=== PATIENT | male | born 1940 | race Caucasian/White ===

== ENCOUNTER → 2017-07-04 | Outpatient (CLI) | payer MEDICARE, OTHER ==
[~2017-07-04] MED LIST: METO50CR PO; PRED20 PO; PROS5TAB2 PO; ZOCO40TA PO
[2017-07-04 13:05] LABS: AUTOMATED NEUTROPHIL # 4.2 TH/MM3 (1.8-7.7); BASOPHIL # 0.1 TH/MM3 (0-0.2); BASOPHIL % 0.8 % (0.0-2.0); EOSINOPHIL # 0.2 TH/MM3 (0-0.4); EOSINOPHIL % 2.5 % (0.0-4.0); HEMATOCRIT 43.6 % (39.0-51.0); HEMOGLOBIN 14.6 GM/DL (13.0-17.0); LYMPH % 27.1 % (9.0-44.0); LYMPHOCYTE # 1.9 TH/MM3 (1.0-4.8); MEAN CELL VOLUME 96.9 FL (80.0-100.0); MEAN CORPUSCULAR HEMOGLOBIN 32.6 PG (27.0-34.0); MEAN CORPUSCULAR HGB CONC 33.6 % (32.0-36.0); MEAN PLATELET VOLUME 6.9 FL (7.0-11.0); MONO % 9.1 % (0.0-8.0); MONOCYTE # 0.6 TH/MM3 (0-0.9); NEUT % 60.5 % (16.0-70.0); PLATELET COUNT 296 TH/MM3 (150-450); RED BLOOD COUNT 4.49 MIL/MM3 (4.50-5.90); RED CELL DISTRIBUTION WIDTH 13.6 % (11.6-17.2)
[2017-07-04 13:32] LABS: BICARBONATE 30.4 MEQ/L (21.0-32.0); CALCIUM 9.1 MG/DL (8.5-10.1); CREATININE 1.21 MG/DL (0.60-1.30)
--- NOTE | 2017-07-04 21:14 | EKG ---
Date Performed: 07/04/2017 Time Performed: 13:05:23 PTAGE: 77 years EKG: SINUS BRADYCARDIA BORDERLINE ECG PREVIOUS TRACING : 09/19/2004 10.14 DOCTOR: Tiffani Rogers Interpretating Date/Time 07/04/2017 21:12:46
== END ==
LOC: CLAB 12:25
PROVIDERS: ATTEND Orthopaedic Surgery Orthopaedic Surgery of the Spine
DX: Z01.810 Encounter for preprocedural cardiovascular examination (principal); Z01.812 Encounter for preprocedural laboratory examination
CPT/HCPCS: 36415; 80048; 85025; 93005

== ENCOUNTER 2017-07-17 20:41 | Emergency (ER) | payer MEDICARE, OTHER ==
[2017-07-17 20:43] VITALS: BP 169/74; PULSE 67; RESP 16; TEMP 98.3; O2SAT 98
[2017-07-17] MEDS ORDERED: PROS5TAB PO (21:39)
[2017-07-17] MEDS ORDERED: ZOCO40TA PO (21:40)
[2017-07-17] MEDS ORDERED: METO50TA PO (21:40)
[2017-07-17] MEDS ORDERED: SULF500T3 PO (21:41)
[2017-07-17 21:42] VITALS: BP 132/69; PULSE 59; RESP 18; O2SAT 97
[2017-07-17 22:01] LABS: AUTOMATED NEUTROPHIL # 4.6 TH/MM3 (1.8-7.7); BASOPHIL % 0.3 % (0.0-2.0); EOSINOPHIL # 0.2 TH/MM3 (0-0.4); EOSINOPHIL % 2.1 % (0.0-4.0); HEMATOCRIT 41.7 % (39.0-51.0); HEMO FLAGS DIFF FINAL; LYMPH % 33.7 % (9.0-44.0); LYMPHOCYTE # 2.9 TH/MM3 (1.0-4.8); MEAN CELL VOLUME 97.5 FL (80.0-100.0); MEAN CORPUSCULAR HGB CONC 32.8 % (32.0-36.0); MONO % 9.2 % (0.0-8.0); NEUT % 54.7 % (16.0-70.0); PLATELET COUNT 263 TH/MM3 (150-450); RED BLOOD COUNT 4.27 MIL/MM3 (4.50-5.90); RED CELL DISTRIBUTION WIDTH 13.6 % (11.6-17.2); WHITE BLOOD COUNT 8.5 TH/MM3 (4.0-11.0)
--- NOTE | 2017-07-17 22:04 | PD ---
HPI Chief Complaint: Edema Time Seen by Provider: 21:43 Travel History International Travel<30 days: No Contact w/Intl Traveler<30days: No Traveled to known affect area: No History of Present Illness HPI The patient is a 77 year old female who presents to the [facility] emergency department with a history of swelling in the left axilla that he reports he first noticed on Monday morning. He reports that it was associated with an aching sensation in the left axilla. He reports that he is also noticed some tingling in his left wrist and left hand. 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 He denies having any open wounds on his left arm. He denies having any new pets or kittens. He denies having any fevers or chills. He reports that the pain comes and goes. He reports that it is usually worse in the morning. Otherwise on review of systems, he denies having any cough, congestion, neck pain, chest pain, shortness of breath, abdominal pain, vomiting , diarrhea, urinary symptoms, or other neurologic symptoms. The patient's primary care physician is Dr. Smith and judi Manuel. [facility] Past Medical History Narrative Medical The patient's past medical history is significant for umbilical hernia repair, ankylosing spondylitis benign prosthetic hypertrophy, hypertension, hyperlipidemia Cardiovascular Problems: Yes (HTN) High Cholesterol: Yes Hypertension: Yes Tetanus Vaccination: Unknown Influenza Vaccination: Yes Past Surgical History Narrative Surgical The patient's past surgical history is significant for a right inguinal hernia repair, umbilical hernia repair, left knee surgery. Abdominal Surgery: Yes (hernia repair right side ) Other Surgery: Yes Social History Alcohol Use: Yes (occasional ) Tobacco Use: No Substance Use: No Allergies-Medications (Allergen,Severity, Reaction): Coded Allergies: No Known Allergies (Verified Adverse Reaction, Unknown, 07/17/17) Reported Meds & Prescriptions Reported Meds & Active Scripts Active Reported Sulfasalazine 500 Mg Tab 500 Mg PO BID Zocor (Simvastatin) 40 Mg Tab 40 Mg PO DAILY Metoprolol Tartrate 50 Mg Tab 50 Mg PO BID Proscar (Finasteride) 5 Mg Tab 5 Mg PO DAILY Do not crush. Review of Systems Except as stated in HPI: all other systems reviewed are Neg General / Constitutional: No: Fever Eyes: No: Visual changes HENT: No: Headaches Cardiovascular: No: Chest Pain or Discomfort Respiratory: No: Shortness of Breath Gastrointestinal: No: Abdominal Pain Genitourinary: No: Dysuria Musculoskeletal: Positive: Pain, Other (left axillary swelling) Skin: No Rash Neurologic: No: Weakness, Focal Abnormalities, Change in Mentation, Slurred Speech, Sensory Disturbance Psychiatric: No: Depression Endocrine: No: Polydipsia Hematologic/Lymphatic: No: Easy Bruising Physical Exam Narrative General: The patient is a well-developed well-nourished male in no acute distress. Head and Neck exam: Head is normocephalic atraumatic. Eyes: EOMI, pupils are equal round and reactive to light. Nose: Midline septum with pink mucous membranes Mouth: Dentition unremarkable. Moist mucus membranes. Posterior oropharynx is not erythematous. No tonsillar hypertrophy. Uvula midline. Airway patent. Neck: No palpable lymphadenopathy. No nuchal rigidity. No thyromegaly. No supraclavicular lymphadenopathy. Cardiovascular: Regular rate and rhythm without murmurs, gallops, or rubs. On examination of the patient's axilla, the patient's bilateral axilla were examined. The patient has no lymphadenopathy palpated. No pain on palpation at this time. No erythema, edema, crepitus, or rashes noted. His axilla appear to be symmetric. He does have some fatty tissue in bilateral axilla noted. Lungs: Clear to auscultation bilaterally. No wheezes, rhonchi, or rales. Abdomen: Soft, without tenderness to palpation in all 4 quadrants of the abdomen. No guarding, rebound, or rigidity. Negative [place] sign. Extremities: No clubbing, cyanosis, or edema. 2+ pulses in all 4 extremities. No tenderness overlying the bicipital groove or before meals joint. The patient has no pain with range of motion of his left shoulder including cross body abduction of the left arm. The patient has full range of motion of the left elbow, left wrist, hand with full strength. The patient has intact sensation over all fingertips. Less than 3 second capillary refill. Back: No spinous process tenderness to palpation. No costovertebral angle tenderness to palpation. Neurologic Exam: Grossly nonfocal. Skin Exam: No rash noted. Intact skin that is warm and dry. Data Data Last Documented VS Vital Signs Date Time Temp Pulse Resp B/P (MAP) Pulse Ox O2 Delivery O2 Flow Rate FiO2 07/17/17 21:42 59 18 132/69 (90) 97 Room Air 07/17/17 20:43 98.3 Orders Orders Complete Blood Count With Diff (07/17/17 21:10) Basic Metabolic Panel (Bmp) (07/17/17 21:10) Coag Profile (07/17/17 21:10) Us Soft Tissue (07/17/17 ) Shoulder, Complete (>2vws) (07/17/17 21:56) Labs Laboratory Tests Test 07/17/17 21:25 White Blood Count 8.5 TH/MM3 Red Blood Count 4.27 MIL/MM3 Hemoglobin 13.7 GM/DL Hematocrit 41.7 % Mean Corpuscular Volume 97.5 FL Mean Corpuscular Hemoglobin 32.0 PG Mean Corpuscular Hemoglobin Concent 32.8 % Red Cell Distribution Width 13.6 % Platelet Count 263 TH/MM3 Mean Platelet Volume 6.6 FL Neutrophils (%) (Auto) 54.7 % Lymphocytes (%) (Auto) 33.7 % Monocytes (%) (Auto) 9.2 % Eosinophils (%) (Auto) 2.1 % Basophils (%) (Auto) 0.3 % Neutrophils # (Auto) 4.6 TH/MM3 Lymphocytes # (Auto) 2.9 TH/MM3 Monocytes # (Auto) 0.8 TH/MM3 Eosinophils # (Auto) 0.2 TH/MM3 Basophils # (Auto) 0.0 TH/MM3 CBC Comment DIFF FINAL Differential Comment Prothrombin Time 10.4 SEC Prothromb Time International Ratio 0.9 RATIO Activated Partial Thromboplast Time 24.5 SEC Blood Urea Nitrogen 28 MG/DL Creatinine 0.97 MG/DL Random Glucose 89 MG/DL Calcium Level 8.7 MG/DL Sodium Level 139 MEQ/L Potassium Level 4.0 MEQ/L Chloride Level 104 MEQ/L Carbon Dioxide Level 29.3 MEQ/L Anion Gap 6 MEQ/L Estimat Glomerular Filtration Rate 75 ML/MIN MDM Medical Decision Making Medical Screen Exam Complete: Yes Emergency Medical Condition: Yes Medical Record Reviewed: Yes Differential Diagnosis Lymphadenitis, versus lymphadenopathy, versus musculoskeletal strain, versus rotator cuff injury, versus arthritis, versus cervical radiculopathy, versus lipoma Narrative Course During the course of the patients emergency department visit, the patients history, examination, and differential diagnosis were reviewed with the patient. The patient was placed on a clinical research monitor with oximetry and frequent blood pressure monitoring. The patient had IV access obtained and blood work sent for analysis. An ultrasound of the soft tissues of the left axilla was ordered. The patients laboratory studies were reviewed and remarkable for a white count of 8.5, hemoglobin 13.7, platelets 263 with monocytes 9.2. Basic metabolic profile is remarkable for BUN of 28, GFR 75, PT 10.4, PTT 24.5 Radiology studies were reviewed and remarkable for an ultrasound of the patient' s left axilla that reveals a probable lymph node in the left axilla that that is 2 x 1.9 x 0.9 cm. As the patient has no other associated symptoms I recommended at this point watchful waiting as the lymph node is small and there is no associated overlying erythema or tenderness on palpation of this time. I recommended follow-up with his primary care physician for reexamination in one week. The patient is given a for his primary care physician. An x-ray of the left shoulder reveals degenerative changes with mild spurring of the before meals joint and anterior medial humeral head, small area of calcification adjacent to the greater tubercle which could represent calcific tendinitis. The patient was also given a copy of this x-ray. The patient's morning pain in the left axilla could be partially related to arthritis in the left shoulder. The patient is resting comfortably and feels better, is alert and in no distress. The patients results and examination findings were discussed with the patient. The repeat examination is unremarkable and benign. The history, exam, diagnostic testing, and current condition do not suggest any significant pathology to warrant further testing, continued ED treatment, admission, or surgical evaluation at this point. The vital signs have been stable. The patient does not have uncontrollable pain, intractable vomiting, or other significant symptoms. The patient's condition is stable and appropriate for discharge. The patient will pursue further outpatient evaluation with a primary care physician or other designated or consulting physician as indicated in the discharge instructions. The patient expressed understanding and was agreeable with this plan. Diagnosis Primary Impression: Left axillary pain Additional Impression: Enlarged lymph node Referrals: Primary Care Physician Patient Instructions: General Instructions, Lymphadenopathy (ED) Med/Other Pt SpecificInfo: No Change to Meds Disposition: 01 DISCHARGE HOME Condition: Stable Ana Paula Guillermo MD Jul 17, 2017 22:04
[2017-07-17 22:13] LABS: BICARBONATE 29.3 MEQ/L (21.0-32.0)
[2017-07-17 22:26] LABS: APTT (PATIENT) 24.5 SEC (24.3-30.1); INTERNATIONAL NORMALIZED RATIO 0.9 RATIO; PROTHROMBIN TIME - PATIENT 10.4 SEC (9.8-11.6)
--- NOTE | 2017-07-17 23:02 | RADRPT ---
EXAM DATE/TIME: 07/17/2017 22:36 [facility] COMPARISON: No previous studies available for comparison. INDICATIONS : Palpable mass. MEDICAL HISTORY : Hypertension. Hypercholesterolemia. SURGICAL HISTORY : Hernia repair right side. Right knee surgery. ENCOUNTER: Initial ACUITY: 1 week PAIN SCORE: 3/10 LOCATION: Left Axilla. AREA EVALUATED: Left axilla. FINDINGS: MASSES: Isoechoic 2.0 x 1.9 x 0.9 cm soft tissue mass possible lymph node. FLUID COLLECTIONS: None. OTHER: Negative. CONCLUSION: 1. Probable lymph node in the left axilla. Jasson Graves MD on July 17, 2017 at 22:59 Board Certified Radiologist. This report was verified electronically.
--- NOTE | 2017-07-17 23:09 | RADRPT ---
EXAM DATE/TIME: 07/17/2017 22:03 [facility] COMPARISON: No previous studies available for comparison. INDICATIONS : Pain and possible swelling inferior aspect of left shoulder, denies injury MEDICAL HISTORY : None. SURGICAL HISTORY : None. ENCOUNTER: Initial ACUITY: 2 weeks PAIN SCORE: 3/10 LOCATION: Left Shoulder FINDINGS: No acute fracture is seen. The glenohumeral and acromioclavicular joints are aligned. There is some h ypertrophic change at acromioclavicular joint and at the inferior medial humeral head. There some natanael cification adjacent to the greater tubercle. CONCLUSION: 1. Degenerative change with mild spurring at the acromioclavicular joint and inferior medial humeral head. 2. Small area of calcification adjacent to the greater tubercle which could represent calcific tendin itis. Lucio Sagastume MD on July 17, 2017 at 23:07 Board Certified Radiologist. This report was verified electronically.
== END 2017-07-17 23:28 | disposition home or self-care (01) ==
LOC: NEPC 20:41
DX: M79.622 Pain in left upper arm (principal); R59.9 Enlarged lymph nodes, unspecified; M45.9 Ankylosing spondylitis of unspecified sites in spine; I10 Essential (primary) hypertension; E78.5 Hyperlipidemia, unspecified
CPT/HCPCS: 73030; 76999; 80048; 85025; 85610; 85730

== ENCOUNTER → 2017-12-04 | Outpatient (CLI) | payer MEDICARE, OTHER ==
[~2017-12-04] MED LIST changes: +ASPI81TA23 PO; +ATOR40TA16 PO; +DICL75TA PO; +FOLI800T PO; +METH2.5T PO; -METO50CR PO; +METO50TA PO; -PRED20 PO; +PROS5TAB PO; -PROS5TAB2 PO; +SULF500T3 PO; +TAMS0.4C4 PO
[2017-12-04 08:41] LABS: AUTOMATED NEUTROPHIL # 3.8 TH/MM3 (1.8-7.7); BASOPHIL % 0.6 % (0.0-2.0); EOSINOPHIL # 0.2 TH/MM3 (0-0.4); EOSINOPHIL % 3.7 % (0.0-4.0); HEMATOCRIT 40.5 % (39.0-51.0); HEMOGLOBIN 13.7 GM/DL (13.0-17.0); LYMPH % 27.6 % (9.0-44.0); LYMPHOCYTE # 1.8 TH/MM3 (1.0-4.8); MEAN CELL VOLUME 98.5 FL (80.0-100.0); MEAN CORPUSCULAR HEMOGLOBIN 33.4 PG (27.0-34.0); MEAN CORPUSCULAR HGB CONC 33.8 % (32.0-36.0); MEAN PLATELET VOLUME 6.9 FL (7.0-11.0); MONO % 10.1 % (0.0-8.0); MONOCYTE # 0.7 TH/MM3 (0-0.9); PLATELET COUNT 299 TH/MM3 (150-450); RED BLOOD COUNT 4.11 MIL/MM3 (4.50-5.90); RED CELL DISTRIBUTION WIDTH 14.1 % (11.6-17.2); WHITE BLOOD COUNT 6.5 TH/MM3 (4.0-11.0)
[2017-12-04 08:58] LABS: PROTHROMBIN TIME - PATIENT 10.4 SEC (9.8-11.6)
[2017-12-04 09:12] LABS: CALCIUM 8.8 MG/DL (8.5-10.1); CREATININE 0.99 MG/DL (0.60-1.30)
[2017-12-04 10:17] LABS: BILIRUBIN, URINE NEG (NEG); BLOOD, URINE NEG (NEG); GLUCOSE,URINE NEG (NEG); HYALINE CAST, URINE 31 /lpf (RARE); KETONE, URINE NEG (NEG); MUCUS URINE MANY /lpf (OCC); NITRITE,URINE NEG (NEG); PH, URINE 5.5 (5.0-8.5); SQUAMOUS EPITHELIAL CELL URINE 1 /hpf (0-5); URINE COLOR YELLOW (YELLW/STRAW); URINE LEUKOCYTE ESTERASE NEG (NEG)
== END ==
LOC: CPRE 07:53
PROVIDERS: ATTEND Orthopaedic Surgery Orthopaedic Surgery of the Spine
DX: Z01.812 Encounter for preprocedural laboratory examination (principal); M79.609 Pain in unspecified limb; M16.11 Unilateral primary osteoarthritis, right hip
CPT/HCPCS: 36415; 80048; 81001; 85025; 85610; 85730

== ENCOUNTER 2017-12-19 05:10 | Inpatient (IN) | payer MEDICARE, OTHER ==
[~2017-12-19] VITALS: Ht 170.2 cm; Wt 102.1 kg
[~2017-12-19 05:10] MED LIST changes: -SULF500T3 PO; -ZOCO40TA PO
[2017-12-19] MEDS ORDERED: METOPROLOL TARTRATE 25 MG TAB PO PRN (05:30)
[2017-12-19] MEDS ORDERED: LACTATED RINGER'S 1000 ML IV PRN (05:30)
[2017-12-19] MEDS ORDERED: CHLORHEXIDINE GLUCONATE 2 % 1 PACK (2 CLOTHS) TOPICAL PRN (05:30)
[2017-12-19] MEDS ORDERED: POVIDONE IODINE 5% (ANTISEPSIS KIT) 4 APPLICATIONS EACH NARE PRN (05:30)
[2017-12-19] MEDS ORDERED: ceFAZolin 2 GM PREMIX 50 ML IV SCH (05:30)
[2017-12-19] MEDS ORDERED: SODIUM CHLORID 0.9% 500 ML IV PRN (05:30)
[2017-12-19] MEDS ORDERED: CHLORHEXIDINE GLUCONATE 4% SOLN 120 ML BTL TOPICAL SCH (05:30)
[2017-12-19] MEDS ORDERED: EXPAREL PERI-ARTICULAR INJECTION (TOTAL VOL. 60 ML) P-ARTICULR SCH ×2 (05:30)
[2017-12-19] MEDS ORDERED: VANCOMYCIN 1 GM/200 ML PREMIX ON-CALL IV SCH (05:30)
[2017-12-19] MEDS ORDERED: TRANEXAMIC ACID INJ 1,020 MG in SODIUM CHLORIDE 0.9% INJ 100 ML IV SCH (05:30)
[2017-12-19] MEDS ORDERED: ACETAMINOPHEN 1000 MG/100 ML 100 ML IV ONE (06:40)
[2017-12-19] MEDS ORDERED: ceFAZolin 2 GM PREMIX 100 ML IV ONE (07:14)
[2017-12-19] MEDS ORDERED: BUPIVACAINE PF 0.75% DEX-WATER INJ 2 ML AMP ONE (07:44)
[2017-12-19] MEDS ORDERED: PROPOFOL 500 MG/50 ML INJ 50 ML ONE (08:33)
[2017-12-19] MEDS ORDERED: ACETAMINOPHEN/HYDROcodone 325 MG/10 MG TAB PO PRN (09:45)
[2017-12-19] MEDS ORDERED: NALOXONE HCL 0.4 MG/ML AMP IV PUSH PRN (09:45)
--- NOTE | 2017-12-19 09:45 | PD.OP ---
cc: Yanick Sanford MD Operative Report Date of Surgery: Dec 19, 2017 Preoperative Diagnosis: Osteoarthritis right hip Postoperative Diagnosis: Same Procedure: Right total hip replacement arthroplasty, direct anterior exposure Anesthesia: Spinal Surgeon: Yanick Sanford Electron Beam Machine Welder Setter(s): ROCCO Chaparro Operation and Findings: EBL: 350 cc INDICATION: This patient presents with significant hip pain related to severe osteoarthritis of the right hip. Despite extensive conservative care this patient continues to be painful and now presents for surgical treatment. NOTE: Patricia Chaparro PA-C was present for the entire surgical procedure as my director of first impressions. In my medical opinion her skill and care was necessary for the proper management of this patient. COMPONENTS: COMPANY: [employer] CUP: [place], 56, 100 series, gription surface LINER: Altrx 36, neutral STEM: [place], size 14, high offset, hydroxyapatite-coated HEAD: 36 mm, metal, +5, 12/14 taper PROCEDURE: This patient was brought to the operating room and anesthetized in the supine position and positioned on the fracture table with both legs held extended. The right hip and leg was scrubbed with alcohol followed by Hibiclens followed by ChloraPrep and draped sterilely. Antibiotics were given within routine time window and a timeout was done. A 4 inch incision was made starting 2 cm distal and 2 cm lateral to the anterior superior iliac spine. The fascia mariya was opened longitudinally. The interval between the fascia mariya and the rectus was opened down to the capsule of the hip joint. Retractors were positioned allowing good visualization of the capsule. This was opened longitudinally and flaps were created. Stay sutures were utilized. Exposure was excellent. The neck was cut at the proper location using fluoroscopy as a guide. The head was removed. Deep retractors were positioned allowing good visualization of the acetabulum. Acetabulum was deepened down to the floor starting with a proper size reamer and reaming up to 55 mm. A trial was utilized. Fluoroscopy was used to check position and confirmed satisfactory alignment. The rim was reamed with a 56 mm reamer and the final cup was positioned in approximately 20 of anteversion and 40-45 of abduction. Position was satisfactory. A single hole eliminator was positioned followed by the final liner. The lifting hook was utilized. The leg was dropped to the floor, maximally externally rotated and brought across the midline. Retractors were positioned. A box osteotome was utilized followed by progressive broaching to the proper stem size. Trial reduction showed excellent alignment and fit. With 60 of external rotation the leg was dropped to the floor without evidence of anterior subluxation. The wound was irrigated. The final stem was inserted and was found to be very stable. The final reduction using the final head. Stability was as previously noted. Intraoperative x-rays were taken. The wound was irrigated copiously. Hemostasis was controlled. Local anesthesia was utilized. The capsule was repaired with #2 Tycron sutures. The fascia mariya was repaired with running 0 PDS on a loop. Subcutaneous tissue was approximated with 2-0 Vicryl and skin with running intradermal 3-0 Vicryl followed by Steri-Strips. A sterile dressing was applied. The patient was awakened and taken to the recovery room in satisfactory condition. FINDINGS: There was severe osteoarthritis of the right hip. There was a severely degenerated and torn labrum complicating this condition. The final solution appeared to be excellent. There was no complication was appreciated Yanick Sanford MD Dec 19, 2017 09:45
[2017-12-19] MEDS ORDERED: ASPI325T33 PO (09:47)
[2017-12-19] MEDS ORDERED: HYDR-3583 PO (09:47)
[2017-12-19] MEDS ORDERED: Post-op Orders (for Pharmacy) XX ONE (09:53)
[2017-12-19] MEDS ORDERED: DO NOT ADM ANY ANTICOAGULANT DRUGS PRN (09:59)
[2017-12-19] MEDS ORDERED: MIDAZOLAM HCL 2 MG/2 ML VIAL ONE (10:08)
[2017-12-19] MEDS: LACTATED RINGER'S 1000 ML INJ 1,000 ML IV SCH (10:44)
[2017-12-19] MEDS ORDERED: ASPIRIN 81 MG CHEW TAB CHEW ONE (11:00)
[2017-12-19] MEDS ORDERED: PHENYLEPH/NS 1000 MCG/10 ML SYR IV ONE (12:00)
[2017-12-19] MEDS ORDERED: ONDANSETRON HCL 4 MG/2 ML VIAL IV ONE (12:00)
[2017-12-19] MEDS ORDERED: PROPOFOL 200 MG/20 ML AMP IV ONE (12:00)
[2017-12-19] MEDS ORDERED: ePHEDrine/NS 25 MG/5 ML SYRINGE IV ONE (12:00)
[2017-12-19] MEDS ORDERED: DEXAMETHASONE SOD PHOS 4 MG/ML VIAL IV ONE (12:00)
[2017-12-19] MEDS ORDERED: *morphine SULFATE 4 MG/ML PERIprocedure ONLY ONE (13:47)
[2017-12-19] MEDS: ACETAMINOPHEN/HYDROcodone 325 MG/10 MG TAB PO PRN ×3 (15:09→23:54)
--- NOTE | 2017-12-19 15:35 | RADRPT ---
EXAM DATE/TIME: 12/19/2017 07:33 [facility] COMPARISON: No previous studies available for comparison. INDICATIONS : Post op total hip arthroplasty. MEDICAL HISTORY : Hypertension. Hypercholesterolemia. SURGICAL HISTORY : Hernia repair right side. Right knee surgery. ENCOUNTER: Initial ACUITY: 1 day PAIN SCORE: Non-responsive. LOCATION: Right hip FINDINGS: View of the right hip was obtained. Postsurgical changes following hip arthroplasty are noted. Acetab ular and femoral components are well seated and satisfactorily aligned. CONCLUSION: Status post right hip arthroplasty. Jasson Graves MD on December 19, 2017 at 15:33 Board Certified Radiologist. This report was verified electronically.
[2017-12-19 16:00] VITALS: BP 135/63; PULSE 73; RESP 19; TEMP 98.2; O2SAT 95
[2017-12-19] MEDS: MORPHINE SULFATE 8 MG/ML INJ IM PRN ×2 (17:17→20:54)
[2017-12-19 20:00] VITALS: BP 114/60; PULSE 87; RESP 18; TEMP 97.9; O2SAT 97
[2017-12-19] MEDS ORDERED: WALKER WHEELS/F1 MIS (20:34)
[2017-12-19] MEDS ORDERED: COMMODE 3-IN-11 MIS (20:35)
--- NOTE | 2017-12-19 20:38 | HHI.FF ---
Face to Face Verification Diagnosis: (1) Osteoarthritis of right hip Physical Therapy Gait training, Safety evaluation, Transfer training, bed to chair Hip: Total hip, Protocol: Right, Progress to weight bearing Right LE Weight Bearing: WB as tolerated Additional Instructions PT 3-4 days/wk for 2 weeks. WBAT RLE. Anterior RED protocol. Gait training. Walker as needed. Nursing RN Days per Week: 2 x Week(s): 1 Nursing: Other Dressing Changes: Do not change dressing Additional Instructions Vitals assessment. Dressing assessment - do not change unless saturated or erythema. I have seen patient Brennen Toney on 12/19/17. My clinical findings support the need for the requested home health care services because: Limited ability to care for self High risk of falls I certify that my clinical findings support that this patient is homebound because: Post-op weakness Unsteady gait/balance Patricia Chaparro Dec 19, 2017 20:38
--- NOTE | 2017-12-19 20:38 | HHI.DCPOC ---
Discharge Care Plan Diagnosis: (1) Osteoarthritis of right hip (2) Cervical paraspinal muscle spasm Your Health Problems Are: Difficulty with ADL Incision/Drains Swelling Goals to Promote Your Health * To prevent worsening of your condition and complications * To maintain your health at the optimal level Directions to Meet Your Goals Take your medications as prescribed Follow your dietary instruction Follow activity as directed Keep your appointments as scheduled Take your immunizations and boosters as scheduled If your symptoms worsen call your PCP, if no PCP go to Urgent Care Center or Emergency Room Smoking is Dangerous to Your Health. Avoid second hand smoke Call the 24-hour hour crisis hotline for domestic abuse at Patricia Chaparro Dec 19, 2017 20:38
--- NOTE | 2017-12-19 20:46 | HHI.DS ---
Discharge Summary Admission Date Dec 19, 2017 at 05:10 Discharge Date: Dec 21, 2017 Admitting Diagnosis see below Diagnosis: (1) Osteoarthritis of right hip Diagnosis: Principal ICD Codes: M16.11 - Unilateral primary osteoarthritis, right hip (2) Cervical paraspinal muscle spasm Diagnosis: Secondary ICD Codes: M62.838 - Other muscle spasm Procedures Right total hip arthroplasty, direct anterior approach Brief History This is a 77 year old male patient with a 2-3 year history of right hip pain. He attempted basic activity changes when the pain began to increase. He did not see improvement so he sought out medical treatment in 2016. Imaging studies were performed revealing moderate to advanced arthritis with subchondral cystic changes. He was already on immunosuppressive medications for ankylosing spondylitis including methotrexate and sulfasalazine. He was eventually placed on diclofenac. He pursued physical therapy for several weeks but his function did not improve. He underwent intra-articular hip injection with cortisone July 2017 and did very well for 4 months. As his pain began to return, surgical treatment was discusse. It was recommended that he consider right total hip arthroplasty, direct anterior approach. He agreed and no presents for the above. Hospital Course Surgical treatment was performed on the day of admission without complication. He struggled with cervical stiffness and spasms both preoperatively and postoperatively due to his ankylosing spondylitis. He recovered well in PACU and was transferred to the orthopaedic floor. Pain was controlled with IV and oral medications. DVT prophylaxis was initiated with ASA 81mg bid. He was given flexeril and prednisone for his cervical condition. He was compliant with physical therapy and all RED precautions. After 2 days he was found to be stable and discharged home with home health care. He was educated to continue his therapy, to ice his operative leg, and to pursue a high fiber diet. He was given prescriptions for ASA 81mg bid and Constantia 10mg. Pt Condition on Discharge: Stable Discharge Disposition: Disch w/ Home Health Serv Discharge Instructions Diet Instructions: High Fiber Diet Activities You Can Perform: Weight Bearing as Maribel Activities to Avoid: Strenuous Activity Additional Activity Instruc.: Anterior RED protocol New Medications: Commode 3-in-1 (Commode 3-in-1) 1 Mis Mis EA .XX DIRECTED, #1 0 Refills Walker with Front Wheels (Walker with Front Wheels) 1 Mis Mis EA .XX DIRECTED, #[address] (Aspirin EC) 325 Mg Tabdr 81 MG PO BID for Prevent Blood Clot, #60 TAB Hydrocodone/Acetaminophen (Hydrocodone-Acetamin 10-325 mg) 10 Mg-325 Mg Tablet 1 TAB PO Q4H PRN for Pain, #42 TAB Continued Medications: Atorvastatin (Atorvastatin) 40 Mg Tab 40 MG PO HS for Cholesterol Management, #30 TAB 0 Refills Finasteride (Proscar) 5 Mg Tab 5 MG PO EVERY OTHER DAY for Manage Prostate Problems, #30 TAB 0 Refills Do not crush. Folic Acid (Folic Acid) 0.8 Mg Tab 1 MG PO DAILY for Nutritional Supplement, TAB 0 Refills Methotrexate (Methotrexate) 2.5 Mg Tab 3 TAB PO every monday, TAB 0 Refills Metoprolol Tartrate (Metoprolol Tartrate) 50 Mg Tab 50 MG PO BID, #60 TAB 0 Refills Tamsulosin (Tamsulosin) 0.4 Mg Cap 0.4 MG PO HS for Manage Prostate Problems, #30 CAP 0 Refills Discontinued Medications: Aspirin DR (Aspirin EC) 81 Mg Tabdr 81 MG PO DAILY, TAB [address] (Diclofenac Sodium DR) 75 Mg Tabdr 75 MG PO BID, #60 TAB 0 Refills Patricia Chaparro Dec 19, 2017 20:46
[2017-12-19] MEDS: SENNOSIDES 8.6 MG TAB PO SCH (20:50)
[2017-12-19] MEDS: TAMSULOSIN HCL 0.4 MG CAP PO SCH (20:50)
[2017-12-19] MEDS: METOPROLOL TARTRATE 50 MG TAB PO SCH (20:50)
[2017-12-19] MEDS: ATORVASTATIN 40 MG TAB PO SCH (20:50)
[2017-12-19] MEDS: ASPIRIN EC 81 MG TABEC PO SCH (20:51)
[2017-12-19] MEDS: MAGNESIUM HYDROXIDE SUSP 30 ML CUP PO SCH (20:51)
[2017-12-20 03:16] VITALS: BP 138/62; PULSE 73; RESP 18; TEMP 98.6; O2SAT 94
[2017-12-20 07:39] VITALS: BP 111/56; PULSE 67; RESP 18; TEMP 97.7; O2SAT 93
[2017-12-20] MEDS: METOPROLOL TARTRATE 50 MG TAB PO SCH ×2 (07:56→20:25)
[2017-12-20] MEDS: ACETAMINOPHEN/HYDROcodone 325 MG/10 MG TAB PO PRN ×4 (07:56→21:42)
[2017-12-20] MEDS: ASPIRIN EC 81 MG TABEC PO SCH ×2 (07:57→20:25)
[2017-12-20] MEDS: MAGNESIUM HYDROXIDE SUSP 30 ML CUP PO SCH ×2 (07:57→20:25)
[2017-12-20 08:47] LABS: HEMATOCRIT 32.4 % (39.0-51.0)
[2017-12-20 12:00] VITALS: BP 117/58; PULSE 61; RESP 18; TEMP 97.6; O2SAT 96
--- NOTE | 2017-12-20 12:59 | PD.ORT.PN ---
Subjective Subjective Remarks Doing 'as he expected'. His current complaint involved his neck spasms. It is better than yesterday but still 'very uncomfortable'. Right hip pain is controlled with PO meds. Appetite is ok. Urinating readily. Concerned about going home today. No new CP or SOB. Objective Vitals Vital Signs Date Time Temp Pulse Resp B/P (MAP) Pulse Ox O2 Delivery O2 Flow Rate FiO2 12/20/17 12:00 97.6 61 18 117/58 (77) 96 12/20/17 08:56 20 12/20/17 07:39 97.7 67 18 111/56 (74) 93 12/20/17 03:16 98.6 73 18 138/62 (87) 94 12/19/17 20:59 18 12/19/17 20:00 97.9 87 18 114/60 (78) 97 12/19/17 16:00 98.2 73 19 135/63 (87) 95 12/19/17 14:00 97.7 66 16 126/64 (84) 92 Nasal Cannula 2 I/O 12/19/17 12/19/17 12/19/17 12/20/17 12/20/17 12/20/17 07:00 15:00 23:00 07:00 15:00 23:00 Intake Total 2920 ml 100 ml 460 ml Output Total 350 ml Balance 2570 ml 100 ml 460 ml Intake Oral 360 ml IV Total 1620 ml 100 ml 100 ml Other 1300 ml Estimated Blood Loss 350 ml # Voids 2 # Bowel Movements 0 Result Diagram: 12/20/17 0801 Procedures Right total hip arthroplasty, direct anterior approach Objective Remarks Walking through room from restroom With his NAD VSS RLE Hip dressing c/d/i, mild swelling, mild warmth, no erythema +motor at, +sens, +nvi Neg homans Assessment & Plan Ortho Post Op Day #: 1 Problem List: (1) Osteoarthritis of right hip ICD Codes: M16.11 - Unilateral primary osteoarthritis, right hip Qualifiers: Qualified Codes: M16.11 - Unilateral primary osteoarthritis, right hip Assessment and Plan pod#1 s/p R RED, anterior Ortho stable. Increased neck pain but improved from yesterday. PO pain meds as needed. Flexeril for cervical spasms PT - WBAT RLE. Anterior red precautions. Hold dressing changes unless saturated. ASA 81mg bid IS encouraged. D/C planning, home w hhc tomorrow. He prefers [facility] as he has used them in the past. DME written. Patricia Chaparro Dec 20, 2017 12:59
[2017-12-20] MEDS ORDERED: CYCLOBENZAPRINE HCL 10 MG TAB PO PRN (13:00)
[2017-12-20] MEDS: predniSONE 10 MG TAB PO SCH (15:23)
[2017-12-20 16:00] VITALS: BP 105/53; PULSE 64; RESP 18; TEMP 97.9; O2SAT 95
[2017-12-20 20:00] VITALS: BP 144/67; PULSE 79; RESP 16; TEMP 97.3; O2SAT 96
[2017-12-20] MEDS: ATORVASTATIN 40 MG TAB PO SCH (20:24)
[2017-12-20] MEDS: SENNOSIDES 8.6 MG TAB PO SCH (20:24)
[2017-12-20] MEDS: TAMSULOSIN HCL 0.4 MG CAP PO SCH (20:24)
[2017-12-20] MEDS: LACTATED RINGER'S 1000 ML INJ 1,000 ML IV SCH (23:30)
[2017-12-21] VITALS: BP 127/61; PULSE 67; RESP 20; TEMP 97.9; O2SAT 94
[2017-12-21] MEDS: LACTATED RINGER'S 1000 ML INJ 1,000 ML IV SCH (00:30)
[2017-12-21] MEDS: ACETAMINOPHEN/HYDROcodone 325 MG/10 MG TAB PO PRN ×3 (03:22→12:31)
[2017-12-21 04:00] VITALS: BP 113/58; PULSE 65; RESP 18; TEMP 97.6; O2SAT 96
[2017-12-21 08:00] VITALS: BP 100/57; PULSE 53; RESP 18; TEMP 97.9; O2SAT 94
[2017-12-21] MEDS: METOPROLOL TARTRATE 50 MG TAB PO SCH (08:29)
[2017-12-21] MEDS: MAGNESIUM HYDROXIDE SUSP 30 ML CUP PO SCH (08:29)
[2017-12-21] MEDS: predniSONE 10 MG TAB PO SCH (08:30)
[2017-12-21] MEDS: ASPIRIN EC 81 MG TABEC PO SCH (08:30)
--- NOTE | 2017-12-21 08:37 | PD.ORT.PN ---
Subjective Subjective Remarks Doing better today. He still has bilateral neck pain but it is less severe. His hi pis 'doing fine'. No new leg pain. Urinating readily. Ready for d/c home. No new CP or SOB. Objective Vitals Vital Signs Date Time Temp Pulse Resp B/P (MAP) Pulse Ox O2 Delivery O2 Flow Rate FiO2 12/21/17 04:00 97.6 65 18 113/58 (76) 96 12/21/17 00:00 97.9 67 20 127/61 (83) 94 12/20/17 20:00 97.3 79 16 144/67 (92) 96 12/20/17 16:00 97.9 64 18 105/53 (70) 95 12/20/17 13:04 20 12/20/17 12:00 97.6 61 18 117/58 (77) 96 I/O 12/20/17 12/20/17 12/20/17 12/21/17 12/21/17 12/21/17 07:00 15:00 23:00 07:00 15:00 23:00 Intake Total 460 ml 960 ml 120 ml Output Total 400 ml Balance 460 ml 960 ml -280 ml Intake Oral 360 ml 960 ml 120 ml IV Total 100 ml Output Urine Total 400 ml # Voids 2 2 # Bowel Movements 0 0 Result Diagram: 12/20/17 0801 Procedures Right total hip arthroplasty, direct anterior approach Objective Remarks Sitting in chair NAD VSS RLE Hip dressing c/d/i, mild swelling, mild warmth, no erythema +motor at, +sens, +nvi Neg homans Assessment & Plan Ortho Post Op Day #: 2 Problem List: (1) Osteoarthritis of right hip ICD Codes: M16.11 - Unilateral primary osteoarthritis, right hip Qualifiers: Qualified Codes: M16.11 - Unilateral primary osteoarthritis, right hip (2) Cervical paraspinal muscle spasm ICD Codes: M62.838 - Other muscle spasm Assessment and Plan pod#2 s/p R RED, anterior Ortho stable. Ok to d/c home w c today after PT. Neck pain stable but present. Pt placed on flexeril and prednisone yesterday. PO pain meds as needed. PT - WBAT RLE. Anterior red precautions. Hold dressing changes unless saturated. ASA 81mg bid IS encouraged. F/U in 2 weeks as scheduled. DME written. Patricia Chaparro Dec 21, 2017 08:37
[2017-12-21] MEDS ORDERED: FINASTERIDE 5 MG TAB PO SCH (09:00)
== END 2017-12-21 12:44 | disposition home health service (06) | DRG 470 ==
LOC: HSDI 05:10 → N06B 14:29
PROVIDERS: ADMIT Orthopaedic Surgery Orthopaedic Surgery of the Spine; ATTEND Orthopaedic Surgery Orthopaedic Surgery of the Spine
PROC: 0SR902A Replacement of Right Hip Joint with Metal on Polyethylene Synthetic Substitute, Uncemented, Open Approach (ICD-10-PCS; principal; 2017-12-19 07:36)
DX: M16.11 Unilateral primary osteoarthritis, right hip (principal); M45.9 Ankylosing spondylitis of unspecified sites in spine; E66.9 Obesity, unspecified; I10 Essential (primary) hypertension; M62.830 Muscle spasm of back; E78.5 Hyperlipidemia, unspecified; Z68.35 Body mass index [BMI] 35.0-35.9, adult; Z87.891 Personal history of nicotine dependence
CPT/HCPCS: 73501; 76000; 85014; 85018; 86850; 86900; 86901; 86920; 94150; C1776; C9290; J0131; J0690; J1100; J2250; J2270; J2370; J2405; J3010; J3370; J7120; J7512

== ENCOUNTER 2018-06-04 09:32 | Observation (INO) ==
--- NOTE | 2018-06-04 10:10 | ED ---
HPI General Chief complaint: Neuro Symptoms/Deficit Stated complaint: left arm numbness, arm pain Time Seen by Provider: 06/04/18 10:05 Source: patient and family Mode of arrival: ambulatory Limitations: no limitations History of Present Illness HPI narrative: 78-year-old male patient with history of Ankylosing spondylitis, pituitary tumor, GERD, seen yesterday Due to bradycardia, dizziness, presents back to the ER today because he states that it was worse this morning when he woke up. He states that he is feeling dizzy again, and is having tingling in his fingers and toes. He also felt some discomfort or numbness in the left upper arm area. He denies any chest pains, headaches, vomiting, or other symptoms.He is able to ambulate on his own.He had talked to his er medical technician and his er medical technician told him to come to be evaluated in the ER again. Related Data Home Medications Medication Instructions Recorded Confirmed aspirin 81 mg PO DAILY 06/03/18 06/04/18 duloxetine 30 mg PO DAILY 06/03/18 06/04/18 finasteride [Proscar] 5 mg PO DAILY 06/03/18 06/04/18 folic acid 1 mg PO DAILY 06/03/18 06/04/18 metoprolol tartrate 50 mg PO BID 06/03/18 06/04/18 multivitamin 1 tab PO DAILY 06/03/18 06/04/18 omega 4-lfk-wpz-fish oil [Fish Oil] 1,000 mg DAILY 06/03/18 06/04/18 omeprazole 20 mg PO DAILY 06/03/18 06/04/18 simvastatin [Zocor] 40 mg PO QPM 06/03/18 06/04/18 Allergies Allergy/AdvReac Type Severity Reaction Status Date / Time No Known Allergies Allergy Verified 06/03/18 09:13 Review of Systems ROS: all other systems reviewed are negative [facility] Surgical History Surgical History H/O arthroscopic knee surgery (Acute) History of hip replacement (Acute) Social History Social History Substance History: No History of Abuse Second Hand Smoke Exposure: No Smoking Status: Former smoker Tobacco Type: Cigarettes How Often Do You Have a Drink Containing Alcohol: Monthly or less Recent Travel in [facility] within the Last 8 Weeks: No Recent Out of Country Travel within the Last 8 Weeks: No Immunization History Tetanus Immunization: Unsure Exam Narrative Exam Narrative: GENERAL: Well-developed elderly white male patient currently in moderate distress. Awake and oriented x3. SKIN: Focused skin assessment warm/dry. HEAD: Atraumatic. Normocephalic. EYES: Pupils equal and round. No scleral icterus. No injection or drainage. ENT: No nasal bleeding or discharge. Mucous membranes pink and moist. NECK: Trachea midline. No JVD. Supple. CARDIOVASCULAR: Regular rate and rhythm. No murmur appreciated.Pulses are present and equal bilaterally. RESPIRATORY: No accessory muscle use. Clear to auscultation. Breath sounds equal bilaterally. GASTROINTESTINAL: Abdomen soft, non-tender, nondistended. Hepatic and splenic margins not palpable. MUSCULOSKELETAL: No obvious deformities. No clubbing. No cyanosis. No edema. NEUROLOGICAL: Awake and alert. No obvious cranial nerve deficits. Motor grossly within normal limits. Normal speech. PSYCHIATRIC: Appropriate mood and affect; insight and judgment normal. Course Initial Documented Vital Signs Temperature 97.8 F 06/04/18 09:39 Pulse Rate 56 L 06/04/18 09:39 Respiratory Rate 19 06/04/18 09:39 Blood Pressure 108/55 L 06/04/18 09:39 Pulse Oximetry 97 06/04/18 09:39 Last Documented Vital Signs Temperature 97.8 F 06/04/18 11:19 Pulse Rate 58 L 06/04/18 11:19 Respiratory Rate 16 06/04/18 11:19 Blood Pressure 144/69 H 06/04/18 11:19 Pulse Oximetry 99 06/04/18 11:19 Medical Decision Making [facility] Narrative Medical decision making narrative: Patient is still bradycardic. His blood pressure is on the low side. CT the brain shows pituitary tumor, did not show other signs of acute processes. He has no focal neurological deficits. Lab work was fairly unremarkable. At this point, my plan would be to admit the patient as an observation, obtain further MRI and the case was discussed with Dr. Thomas for admission. Medical Screen Exam Complete: Yes Emergency Medical Condition: Yes Differential Diagnosis Differential Diagnosis: Dysrhythmias versus electrolyte abnormalities versus orthostasis versus vertigo versus acute intracranial processes Lab Data Lab results reviewed: Yes I reviewed the patient's lab results. Result diagrams: 06/04/18 10:30 06/04/18 10:30 Lab Results 06/04/18 06/04/18 Range/Units 10:30 10:30 WBC 7.2 (4.0-11.0) th/mm3 RBC 4.12 L (4.50-5.90) mil/mm3 Hgb 13.3 (13.0-17.0) gm/dL Hct 39.6 (39.0-51.0) % MCV 96.1 (80.0-100.0) fL MCH 32.2 (27.0-34.0) pg MCHC 33.5 (32.0-36.0) % RDW 14.8 (11.6-17.2) % Plt Count 300 (150-450) th/mm3 MPV 6.9 L (7.0-11.0) fL Neut % (Auto) 67.9 (16.0-70.0) % Lymph % (Auto) 20.9 (9.0-44.0) % Millard % (Auto) 8.4 H (0.0-8.0) % Eos % (Auto) 2.4 (0.0-4.0) % Baso % (Auto) 0.4 (0.0-2.0) % Neut # (Auto) 4.9 (1.8-7.7) th/mm3 Lymph # (Auto) 1.5 (1.0-4.8) th/mm3 Millard # (Auto) 0.6 (0.0-0.9) th/mm3 Eos # (Auto) 0.2 (0.0-0.4) th/mm3 Baso # (Auto) 0.0 (0.0-0.2) th/mm3 WBC Differential . Differential Comment Auto diff final Sodium 133 L (136-145) meq/L Potassium 4.0 (3.5-5.1) meq/L Chloride 97 L (98-107) meq/L Carbon Dioxide 27.6 (21.0-32.0) meq/L Anion Gap 8 (5-15) meq/L BUN 16 (7-18) mg/dL Creatinine 0.83 (0.60-1.30) mg/dL Estimated GFR Greater than 89 (>89) mL/min Random Glucose 84 (74-106) mg/dL Calcium 8.6 (8.5-10.1) mg/dL Total Bilirubin 0.7 (0.2-1.0) mg/dL AST 33 (15-37) U/L ALT 34 (12-78) U/L Alkaline Phosphatase 75 (45-117) U/L Troponin I Less than 0.02 L (0.02-0.05) ng/mL Total Protein 6.9 (6.4-8.2) g/dL Albumin 3.6 (3.4-5.0) g/dL Imaging Data Attestation: I personally reviewed and interpreted this imaging study as follows : Radiologist's impression: Chest X-Ray 06/04/18 10:05 CONCLUSION: Negative for acute process Head CT 06/04/18 10:05 CONCLUSION: 1. 9 mm soft tissue nodule associated with the pituitary gland. This does not generate mass effect. This can be further assessed with MRI of the pituitary gland clinically warranted. 2. No acute intracranial abnormality. . Discharge Plan Discharge Disposition Patient Disposition: 30 Still Patient Discharge Condition Condition: Stable Discharge Details Anticipated Discharge Date: 06/04/18 Diagnosis: Dizziness, Bradycardia Physicians Team ED Provider: Nadia Connelly Attending Provider: Jose Eduardo Thomas Discharge Interventions Interventions: Vital Signs Last Done: 06/04/18 11:19 Status ED Status: Admitted Observation Patient
--- NOTE | 2018-06-04 10:32 | XR ---
EXAM DATE: 06/04/2018 10:05 AM EDT AGE/SEX: 78 years / Male INDICATIONS: . Short of breath. CLINICAL DATA: This is the patient's initial encounter. Patient reports that signs and symptoms have been present for 1 day and indicates a pain score of 0/10. MEDICAL/SURGICAL HISTORY: . Hypertension. Hypercholesterolemia. None. COMPARISON: No prior exams available for comparison. FINDINGS: PA and lateral views of the chest demonstrate the lungs to be symmetrically aerated without evidence of mass, infiltrate or effusion. The cardiomediastinal contours are unremarkable. Osseous structures are intact. CONCLUSION: Negative for acute process Electronically signed by: Med Irizarry MD 06/04/2018 10:31 AM EDT
[2018-06-04 10:42] LABS: Baso % (Auto) 0.4 % (0.0-2.0); Eos # (Auto) 0.2 th/mm3 (0.0-0.4); Eos % (Auto) 2.4 % (0.0-4.0); Hematocrit 39.6 % (39.0-51.0); Hemoglobin 13.3 gm/dL (13.0-17.0); Lymph # (Auto) 1.5 th/mm3 (1.0-4.8); Lymph % (Auto) 20.9 % (9.0-44.0); Mean Corpuscular HGB Conc 33.5 % (32.0-36.0); Mean Corpuscular Hemoglobin 32.2 pg (27.0-34.0); Mean Corpuscular Volume 96.1 fL (80.0-100.0); Mean Platelet Volume 6.9 fL (7.0-11.0); Mono # (Auto) 0.6 th/mm3 (0.0-0.9); Mono % (Auto) 8.4 % (0.0-8.0); Neut # (Auto) 4.9 th/mm3 (1.8-7.7); Neut % (Auto) 67.9 % (16.0-70.0); Platelet Count 300 th/mm3 (150-450); Red Blood Count 4.12 mil/mm3 (4.50-5.90); Red Cell Distribution Width 14.8 % (11.6-17.2); White Blood Count 7.2 th/mm3 (4.0-11.0)
--- NOTE | 2018-06-04 10:54 | CT ---
EXAM DATE: 06/04/2018 10:13 AM EDT AGE/SEX: 78 years / Male INDICATIONS: History of pituitary tumor for 10 years, now having hot flashes and imbalance CLINICAL DATA: This is the patient's initial encounter. Patient reports that signs and symptoms have been present for 1 day and indicates a pain score of 0/10. MEDICAL/SURGICAL HISTORY: Gastroesophageal reflux disease. Pituitary tumor . Hernia repair RADIATION DOSE: 66.34 CTDI (mGy) COMPARISON: No prior exams available for comparison. TECHNIQUE: CT of the head without contrast. Using automated exposure control and adjustment of the mA and/or kV according to patient size, radiation dose was kept as low as reasonably achievable to ob tain optimal diagnostic quality images. DICOM format image data is available electronically for revi ew and comparison. FINDINGS: Cerebrum: A 9 mm soft tissue nodule seen associated with the sella turcica and suprasellar cistern. No bony destruction or mass effect. The ventricles are normal for age. No evidence of midline shift, hemorrhage or acute infarction. No extraaxial fluid collections are seen. Posterior Fossa: The cerebellum and brainstem are intact. The 4th ventricle is midline. The cerebe llopontine angle is unremarkable. Extracranial: The visualized portion of the orbits is intact. Skull: The calvaria is intact. No evidence of skull fracture. CONCLUSION: 1. 9 mm soft tissue nodule associated with the pituitary gland. This does not generate mass effect. This can be further assessed with MRI of the pituitary gland clinically warranted. 2. No acute intracranial abnormality. . Electronically signed by: Simone Arroyo MD 06/04/2018 10:53 AM EDT
[2018-06-04 11:04] LABS: Albumin 3.6 g/dL (3.4-5.0); Anion Gap 8 meq/L (5-15); Aspartate Aminotransferase 33 U/L (15-37); Blood Urea Nitrogen 16 mg/dL (7-18); Calcium 8.6 mg/dL (8.5-10.1); Carbon Dioxide 27.6 meq/L (21.0-32.0); Chloride 97 meq/L (98-107); Glomerular Filtration Rate Greater Than 89 mL/min (>89); Glucose,Random 84 mg/dL (74-106); Sodium 133 meq/L (136-145)
[2018-06-04 11:05] LABS: Alanine Aminotransferase 34 U/L (12-78)
[2018-06-04 11:09] LABS: Alkaline Phosphatase 75 U/L (45-117); Total Protein 6.9 g/dL (6.4-8.2)
[2018-06-04] MEDS ORDERED: Acetaminophen 325 MG Tablet PO PRN (11:57)
[2018-06-04] MEDS ORDERED: Gadobutrol PF 10 MMOL/10 ML Vial (for RAD) IV.SIG ONE (13:03)
--- NOTE | 2018-06-04 13:32 | MR ---
EXAM DATE: 06/04/2018 12:29 PM EDT AGE/SEX: 78 years / Male INDICATIONS: Pituitary adenoma. Hot flashes with extremity numbness. CLINICAL DATA: This is the patient's initial encounter. Patient reports that signs and symptoms have been present for 1 day and indicates a pain score of 0/10. MEDICAL/SURGICAL HISTORY: Hypertension. . Right hip replacement, left knee, hernia [place] [facility] [place]. . TECHNIQUE: Multiplanar, multisequence examination of the brain was performed without and with 9.5 ml Gadavist (gadobutrol) contrast as a single exam dose. FINDINGS: Cerebrum: The ventricles are normal for age. No evidence of midline shift, mass lesion, hemorrhage or acute infarction. No extraaxial fluid collections are seen. 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 This results in mass effect u indy the optic chiasm and displaces the infundibulum to the left. White Matter: No significant signal abnormalities are seen in the white matter. Posterior Fossa: The cerebellum and brainstem are intact. The 4th ventricle is midline. The cerebel lopontine angle is unremarkable. The cerebellar tonsils are normal in position. Diffusion Imaging: No focal areas of restricted diffusion are seen. No evidence of acute infarction . Extracranial: The visualized portions of the orbits and paranasal sinuses are unremarkable. Post Contrast: No abnormal areas of parenchymal or dural enhancement. No evidence of blood-brain ba rrier breakdown. CONCLUSION: 1. 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 This results in mass effect upon the optic chiasm and displaces the infundibulum to the left. 2. No acute infarct, acute hemorrhage, midline shift or extra-axial fluid collections. Electronically signed by: Jorge Conway MD 06/04/2018 1:31 PM EDT
--- NOTE | 2018-06-04 14:42 | P.HP ---
History of Present Illness Primary Care Physician: Tiffany Smith Chief Complaint: Paresthesia/dizziness History of Present Illness: 78 years old man with a known h/o Pituitary Adenoma diagnosed 7-9 years ago, returns to the ED for evaluation of bilateral hands numbness and tingling x 24 hours duration associated with Hot flushes, dizziness without any Headache or visual change. Patient states he was recently prescribed Duloxetine on for hot flushes by his terminal make up operator, however after treatment x 2 days, patient reported the appearance of the hands numbness and tingling. 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 He denies any GI bleed, hematuria, hemoptysis, shortness of breath or chest pain - Diagnosis (1) Paresthesia of arm (2) Paresthesias/numbness (3) Dizziness (4) Bradycardia Review of Systems All other systems reviewed negative except as stated in HPI PMFSH - History History Provided By: Patient, Family Member - Medical History Medical History: Medical History (Last Reviewed 06/04/18 @ 15:46 by Venita Roy) Inguinal hernia (Acute) Ankylosing spondylitis (Acute) Elevated cholesterol (Acute) Enlarged prostate (Acute) GERD (gastroesophageal reflux disease) (Acute) Pituitary adenoma (Acute) - Surgical History Surgical History: Surgical History (Last Reviewed 06/04/18 @ 15:46 by Venita Roy) H/O arthroscopic knee surgery (Acute) History of hip replacement (Acute) - Family History Family History: Family History (Last Updated 06/04/18 @ 15:15 by Jose Eduardo Thomas MD) Other CAD (coronary artery disease) - Tobacco History Second Hand Smoke Exposure: No Tobacco Use In Past 30 Days: No Smoking Status: Former smoker Tobacco Type: Cigarettes - Alcohol History How Often Do You Have a Drink Containing Alcohol: 2 to 3 times a week - Substance Use History Substance History: No History of Abuse - Travel History Recent Travel in the [place] Within the Last 8 Weeks: No Recent Travel Out of the Country Within the Last 8 Weeks: No - Immunization History Tetanus Immunization: Unsure Medications and Allergies Active Medications: Active Medications Acetaminophen (Tylenol) 650 mg PO Q4H PRN PRN Reason: Temp > 100.4 Al Hydroxide/Mg Hydroxide (Milk Of Magnesia Liq) 30 ml PO Q12H PRN PRN Reason: Mild Constipation Aspirin (Aspirin Chew) 81 mg PO DAILY SOWMYA Finasteride (Proscar) 5 mg PO DAILY SOWMYA Ondansetron HCl (Zofran Inj) 4 mg IV.PUSH Q6H PRN PRN Reason: NAUSEA OR VOMITING Pravastatin Sodium (Pravachol) 80 mg PO QPM SOWMYA Sodium Chloride (Ns Flush) 2 ml IV.FLUSH PRN PRN PRN Reason: FLUSH AFTER USING IV ACCESS Last Admin: 06/04/18 11:07 Dose: 2 ml Allergies Allergy/AdvReac Type Severity Reaction Status Date / Time No Known Allergies Allergy Verified 06/03/18 09:13 Home Medications Medication Instructions Recorded Confirmed Type aspirin 81 mg PO DAILY 06/03/18 06/04/18 History duloxetine 30 mg PO DAILY 06/03/18 06/04/18 History finasteride [Proscar] 5 mg PO DAILY 06/03/18 06/04/18 History folic acid 1 mg PO DAILY 06/03/18 06/04/18 History metoprolol tartrate 50 mg PO BID 06/03/18 06/04/18 History multivitamin 1 tab PO DAILY 06/03/18 06/04/18 History omega 9-oaj-tqb-fish oil [Fish Oil] 1,000 mg DAILY 06/03/18 06/04/18 History omeprazole 20 mg PO DAILY 06/03/18 06/04/18 History simvastatin [Zocor] 40 mg PO QPM 06/03/18 06/04/18 History Exam Vital signs: Vital Signs 06/04/18 09:39 06/04/18 09:54 06/04/18 10:05 Temperature 97.8 F Pulse Rate 56 L 59 L 86 Respiratory Rate 19 17 Blood Pressure 108/55 L Pulse Oximetry 97 100 06/04/18 11:19 06/04/18 13:20 Temperature 97.8 F 97.7 F Pulse Rate 58 L 54 L Respiratory Rate 16 16 Blood Pressure 144/69 H 109/60 Pulse Oximetry 99 99 Intake & Output 06/03/18 06/04/18 06/04/18 18:59 06:59 18:59 Weight 97.522 kg Narrative: GENERAL: NAD SKIN: Warm and dry. HEAD: Atraumatic. Normocephalic. EYES: Pupils equal and round. No scleral icterus. No injection or drainage. ENT: No nasal bleeding or discharge. Mucous membranes pink and moist. NECK: Trachea midline. No JVD. CARDIOVASCULAR: Regular rate and rhythm. RESPIRATORY: No accessory muscle use. Clear to auscultation. Breath sounds equal bilaterally. GASTROINTESTINAL: Abdomen soft, non-tender, nondistended. Hepatic and splenic margins not palpable. MUSCULOSKELETAL: Extremities without clubbing, cyanosis, or edema. No obvious deformities. NEUROLOGICAL: Awake and alert. No obvious cranial nerve deficits. Motor grossly within normal limits. Five out of 5 muscle strength in the arms and legs. Normal speech. PSYCHIATRIC: Appropriate mood and affect; insight and judgment normal. Results - Labs CBC & Chem 7: 06/04/18 10:30 06/04/18 10:30 Labs: Laboratory Results - last 24 hr 06/04/18 06/04/18 10:30 10:30 WBC 7.2 RBC 4.12 L Hgb 13.3 Hct 39.6 MCV 96.1 MCH 32.2 MCHC 33.5 RDW 14.8 Plt Count 300 MPV 6.9 L Neut % (Auto) 67.9 Lymph % (Auto) 20.9 Baldwin % (Auto) 8.4 H Eos % (Auto) 2.4 Baso % (Auto) 0.4 Neut # (Auto) 4.9 Lymph # (Auto) 1.5 Baldwin # (Auto) 0.6 Eos # (Auto) 0.2 Baso # (Auto) 0.0 WBC Differential . Differential Comment Auto diff final Sodium 133 L Potassium 4.0 Chloride 97 L Carbon Dioxide 27.6 Anion Gap 8 BUN 16 Creatinine 0.83 Estimated GFR Greater than 89 Random Glucose 84 Calcium 8.6 Total Bilirubin 0.7 AST 33 ALT 34 Alkaline Phosphatase 75 Troponin I Less than 0.02 L Total Protein 6.9 Albumin 3.6 - Imaging Impressions Chest X-Ray 06/04/18 10:05 CONCLUSION: Negative for acute process Head CT 06/04/18 10:05 CONCLUSION: 1. 9 mm soft tissue nodule associated with the pituitary gland. This does not generate mass effect. This can be further assessed with MRI of the pituitary gland clinically warranted. 2. No acute intracranial abnormality. . Head MRI 06/04/18 11:43 CONCLUSION: 1. 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 This results in mass effect upon the optic chiasm and displaces the infundibulum to the left. 2. No acute infarct, acute hemorrhage, midline shift or extra-axial fluid collections. Caprini VTE Risk Assessment Caprini VTE Risk Assessment: Moderate/High Risk (score >= 2) Caprini Risk Assessment Model: Point Value = 1 Point Value = 2 Point Value = 3 Point Value = 5 Age 41-60 Minor surgery BMI > 25 kg/m2 Swollen legs Varicose veins or History of unexplained or recurrent spontaneous Oral contraceptives or hormone replacement Sepsis (< 1 month) Serious lung disease, including pneumonia (< 1 month) Abnormal pulmonary function Acute myocardial infarction Congestive heart failure (< 1 month) History of inflammatory bowel disease Medical patient at bed rest Age 61-74 Arthroscopic surgery Major open surgery (> 45 min) Laparoscopic surgery (> 45 min) Malignancy Confined to bed (> 72 hours) Immobilizing plaster cast Central venous access Age >= 75 History of VTE Family history of VTE Factor V Leiden Prothrombin [id number] Lupus anticoagulant Anticardiolipin antibodies Elevated serum homocysteine Heparin-induced thrombocytopenia Other congenital or acquired thrombophilia Stroke (< 1 month) Elective arthroplasty Hip, pelvis, or leg fracture Acute spinal cord injury (< 1 month) Prophylaxis Regimen: Total Risk Factor Score Risk Level Prophylaxis Regimen 0-1 Low Early ambulation 2 Moderate Order ONE of the following: *Sequential Compression Device (SCD) *Heparin 5000 units SQ BID 3-4 Higher Order ONE of the following medications: *Heparin 5000 units SQ TID *Enoxaparin/Lovenox 40 mg SQ daily (WT < 150 kg, CrCl > 30 mL/min) *Enoxaparin/Lovenox 30 mg SQ daily (WT < 150 kg, CrCl > 10-29 mL/min) *Enoxaparin/Lovenox 30 mg SQ BID (WT < 150 kg, CrCl > 30 mL/min) AND/OR *Sequential Compression Device (SCD) 5 or more Highest Order ONE of the following medications: *Heparin 5000 units SQ TID (Preferred with Epidurals) *Enoxaparin/Lovenox 40 mg SQ daily (WT < 150 kg, CrCl > 30 mL/min) *Enoxaparin/Lovenox 30 mg SQ daily (WT < 150 kg, CrCl > 10-29 mL/min) *Enoxaparin/Lovenox 30 mg SQ BID (WT < 150 kg, CrCl > 30 mL/min) AND *Sequential Compression Device (SCD) Assessment and Plan - Assessment (1) Paresthesia of arm Code(s): R20.2 - Paresthesia of skin Status: Acute (2) Paresthesias/numbness Code(s): R20.9 - Unspecified disturbances of skin sensation Status: Acute (3) Dizziness Code(s): R42 - Dizziness and giddiness Status: Acute (4) Bradycardia Code(s): R00.1 - Bradycardia, unspecified Status: Acute - Plan 78 years old man with Paresthesia/Numbness Dizziness H/O Pituitary Adenoma Head CT noted and review Brain MRI noted and review with finding of Pituitary mass which measures 0.6 x 1.7 x 1.3 cm 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
--- NOTE | 2018-06-04 15:31 | P.CONNS ---
History of Present Illness Service: Medicine Requesting Physician: Jose Eduardo Thomas Reason for Consult: Pituitary tumor Primary Care Provider: Tiffany Smith Family Provider: Tiffany Smith Chief Complaint: Increasing frequency of hot flashes History of Present Illness: 78yoM who has had a known pituitary tumor diagnosed 10 years ago when he had acute onset of double vision, which resolved over a year. This was followed for 3 years with presumably no growth. This summer, patient began to experience hot flashes. This increased in frequency from once a week to recently several times per day. Was seen in ED over the weekend for a severe "hot" flash and returned again today. CT, then MRI showed 0.6 x 1.7 x 1.3cm pituitary tumor. Patient does not complain of any visual disturbance, the tumor abuts the chiasm but does not displace and bedside visual clemente intact. History of low Testosterone in the past, saw the [facility] last week who placed him on Duloxetine for the hotflashes but further labs were not taken at that time. [facility] - History History Provided By: Patient, Family Member - Medical History Medical History: Medical History (Last Reviewed 06/04/18 @ 13:53 by Sejal Cam RN) Inguinal hernia (Acute) Ankylosing spondylitis (Acute) Elevated cholesterol (Acute) Enlarged prostate (Acute) GERD (gastroesophageal reflux disease) (Acute) Pituitary adenoma (Acute) - Surgical History Surgical History: Surgical History (Last Reviewed 06/04/18 @ 13:53 by Sejal Cam RN) H/O arthroscopic knee surgery (Acute) History of hip replacement (Acute) - Family History Family History: Family History (Last Reviewed 06/03/18 @ 09:29 by Nadia Connelly MD) Other CAD (coronary artery disease) - Tobacco History Second Hand Smoke Exposure: No Tobacco Use In Past 30 Days: No Smoking Status: Former smoker Tobacco Type: Cigarettes - Alcohol History How Often Do You Have a Drink Containing Alcohol: 2 to 3 times a week - Substance Use History Substance History: No History of Abuse - Travel History Recent Travel in the [place] Within the Last 8 Weeks: No Recent Travel Out of the Country Within the Last 8 Weeks: No - Immunization History Tetanus Immunization: Unsure Medications and Allergies Active Medications: Active Medications Acetaminophen (Tylenol) 650 mg PO Q4H PRN PRN Reason: Temp > 100.4 Al Hydroxide/Mg Hydroxide (Milk Of Iram Liq) 30 ml PO Q12H PRN PRN Reason: Mild Constipation Aspirin (Aspirin Chew) 81 mg PO DAILY SOWMYA Finasteride (Proscar) 5 mg PO DAILY SOWMYA Ondansetron HCl (Zofran Inj) 4 mg IV.PUSH Q6H PRN PRN Reason: NAUSEA OR VOMITING Pravastatin Sodium (Pravachol) 80 mg PO QPM SOWMYA Sodium Chloride (Ns Flush) 2 ml IV.FLUSH PRN PRN PRN Reason: FLUSH AFTER USING IV ACCESS Last Admin: 06/04/18 11:07 Dose: 2 ml Allergies Allergy/AdvReac Type Severity Reaction Status Date / Time No Known Allergies Allergy Verified 06/03/18 09:13 Home Medications Medication Instructions Recorded Confirmed Type aspirin 81 mg PO DAILY 06/03/18 06/04/18 History duloxetine 30 mg PO DAILY 06/03/18 06/04/18 History finasteride [Proscar] 5 mg PO DAILY 06/03/18 06/04/18 History folic acid 1 mg PO DAILY 06/03/18 06/04/18 History metoprolol tartrate 50 mg PO BID 06/03/18 06/04/18 History multivitamin 1 tab PO DAILY 06/03/18 06/04/18 History omega 0-dzj-ycz-fish oil [Fish Oil] 1,000 mg DAILY 06/03/18 06/04/18 History omeprazole 20 mg PO DAILY 06/03/18 06/04/18 History simvastatin [Zocor] 40 mg PO QPM 06/03/18 06/04/18 History Exam Vital signs: Vital Signs 06/04/18 09:39 06/04/18 09:54 06/04/18 10:05 Temperature 97.8 F Pulse Rate 56 L 59 L 86 Respiratory Rate 19 17 Blood Pressure 108/55 L Pulse Oximetry 97 100 06/04/18 11:19 06/04/18 13:20 Temperature 97.8 F 97.7 F Pulse Rate 58 L 54 L Respiratory Rate 16 16 Blood Pressure 144/69 H 109/60 Pulse Oximetry 99 99 Intake & Output 06/03/18 06/04/18 06/04/18 18:59 06:59 18:59 Weight 97.522 kg Narrative: A&O x 3 CN II-XII intact, including EOMI and VFFC, face symm, tongue midline Motor 5/5 UE/LE Reflexes symmetric physiologic Results - Laboratory Findings CBC and BMP: 06/04/18 10:30 06/04/18 10:30 Abnormal lab findings: Abnormal Labs 06/04/18 06/04/18 10:30 10:30 RBC 4.12 L MPV 6.9 L [place] % (Auto) 8.4 H Sodium 133 L Chloride 97 L Troponin I Less than 0.02 L Assessment and Plan - Plan 78yoM with pituitary tumor described above, macroadenoma, (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 No evidence of apoplexy. Plan: Pituitary labs: TSH, free T4 Testosterone, FSH, LH Cortisol, ACTH IGF-1, GH Endocrine consult for alternative management of hot flashes Opthalmology consult for baseline exam Referral to Neurosurgery Alon Ramirez ([phone]) pituitary clinic (with [facility]) for consideration of surgical resection as outpatient next few weeks.
[2018-06-04] MEDS ORDERED: hydrALAZINE 25 MG Tablet PO PRN (17:00)
[2018-06-04 17:27] LABS: Free T4 (Free Thyroxine) 1.01 ng/dL (0.76-1.46); Thyroid Stimulating Hormone 1.09 uIU/mL (0.358-3.740)
[2018-06-05] MEDS: Finasteride 5 MG Tablet PO SCH (08:21)
--- NOTE | 2018-06-05 18:00 | P.PNIM ---
Subjective Interval history: Follow-up head flashes, dizziness, and bilateral hand numbness and tingling with history of pituitary adenoma. Patient laying in bed, stated one hot flash episode this morning, denies any hand numbness and tingling at this time. Patient stated had/started 6 months ago. Also discussed pituitary adenoma was diagnosed 10 years ago accidentally from an MRI scan due to stroke symptoms. And stated never had a problem since then, stated he was following up with wildlife veterinarian however they stopped doing test due to no symptoms for years. Patient stated dizziness when moving around, denies any headache. Patient complains of nausea without vomiting, relieved with Zofran. Patient denies any pain, chest pain, denies any fever or chills. Physical Exam Vital signs: Vital Signs 06/04/18 20:00 06/05/18 00:00 06/05/18 00:12 Temperature 98.0 F 97.5 F L Pulse Rate 66 81 81 Respiratory Rate 18 18 Blood Pressure 104/58 L 142/76 H Pulse Oximetry 95 96 06/05/18 04:00 06/05/18 08:00 06/05/18 09:00 Temperature 97.5 F L 97.2 F L Pulse Rate 73 64 53 L Respiratory Rate 18 20 Blood Pressure 109/55 L 135/77 Pulse Oximetry 95 97 06/05/18 12:00 06/05/18 16:00 Temperature 97.7 F Pulse Rate 71 77 Respiratory Rate 20 Blood Pressure 146/70 H Pulse Oximetry 96 Intake & Output 06/04/18 06/05/18 06/05/18 18:59 06:59 18:59 Output Total 600 / 600 900 / 900 Balance -600 / -600 -900 / -900 Weight 97.522 kg Output: Urine 600 / 600 900 / 900 Narrative: GENERAL: Well-developed, well-nourished, alert and oriented x3, in no apparent distress SKIN: Warm and dry. HEAD: Atraumatic. Normocephalic. EYES: Pupils equal and round. No scleral icterus. No injection or drainage. ENT: No nasal bleeding or discharge. Mucous membranes pink and moist. NECK: Trachea midline. No JVD. CARDIOVASCULAR: Regular rate and rhythm. RESPIRATORY: No accessory muscle use. Clear to auscultation. Breath sounds equal bilaterally. GASTROINTESTINAL: Abdomen obese, soft, non-tender, nondistended. Hepatic and splenic margins not palpable. MUSCULOSKELETAL: Extremities without clubbing, cyanosis, or edema. No obvious deformities. NEUROLOGICAL: Awake and alert. No obvious cranial nerve deficits. Motor grossly within normal limits. Moving all 4 extremities. Normal speech. PSYCHIATRIC: Appropriate mood and affect; insight and judgment normal. Results - Labs CBC & Chem 7: 06/04/18 10:30 06/04/18 10:30 Laboratory Results - last 24 hr 06/04/18 06/04/18 17:55 17:55 Luteinizing Hormone 0.6 L Cortisol 1.0 Assessment and Plan - Assessment (1) Paresthesia of arm Code(s): R20.2 - Paresthesia of skin Status: Acute (2) Paresthesias/numbness Code(s): R20.9 - Unspecified disturbances of skin sensation Status: Acute (3) Dizziness Code(s): R42 - Dizziness and giddiness Status: Acute (4) Bradycardia Code(s): R00.1 - Bradycardia, unspecified Status: Acute (5) Hot flashes Code(s): R23.2 - Flushing Status: Acute - Plan 78 years old man with a known h/o Pituitary Adenoma diagnosed 7-9 years ago, returns to the ED for evaluation of bilateral hands numbness and tingling x 24 hours duration associated with Hot flushes, dizziness without any Headache or visual change. Patient states he was recently prescribed Duloxetine on for hot flushes by his wildlife veterinarian, however after treatment x 2 days, patient reported the appearance of the hands numbness and tingling. 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 -Neurosurgery consulted, recommended pituitary labs -Check Pituitary, TSH, Free T4, IGF-1, GH, Cortisol, LH, results pending -Check Orthostatic BP -PT consult to treat and eval -Endocrine consult for alternative management of hot flashes -Opthalmology consult for baseline exam -Referral to Neurosurgery Alon Ramirez ([phone]) pituitary clinic (with [facility]) for consideration of surgical resection as outpatient next few weeks, per neurology recommendation Bradycardia -Will hold Lopressor -Telemetry monitoring Hypertension -Hold Lopressor due to Bradycardia -Norvasc 10mg Q day -monitor BP DVT Prophylaxis: patient ambulatory Code Status: full code Discussed Condition With: patien, family/, and nurse
[2018-06-06] MEDS: Finasteride 5 MG Tablet PO SCH (08:01)
[2018-06-06 08:53] VITALS: RESP 18
--- NOTE | 2018-06-06 11:36 | P.DS ---
Date of admission: 06/04/18 11:39 Primary care physician: Tiffany Smith Attending physician on discharge: Raphael Ngo Anticipated date of discharge: 06/06/18 Brief History from admission: 78 years old man with a known h/o Pituitary Adenoma diagnosed 7-9 years ago, returns to the ED for evaluation of bilateral hands numbness and tingling x 24 hours duration associated with Hot flushes, dizziness without any Headache or visual change. Patient states he was recently prescribed Duloxetine on for hot flushes by his cashier supervisor, however after treatment x 2 days, patient reported the appearance of the hands numbness and tingling. 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 He denies any GI bleed, hematuria, hemoptysis, shortness of breath or chest pain Patient update on day of discharge: Patient awake alert and oriented x3, denies any headache or dizziness, denies any hot flashes today, walking around in the room without difficulty. Discussed discharge planning and follow-up with a neurosurgeon and cashier supervisor in . Patient discuss concern about his hot flashes recommended to follow-up with the cashier supervisor for possible treatment. Patient denies any headache or dizziness at this time, complains of nausea treated with Zofran. Will start with omeprazole. Patient denies any vomiting, no diarrhea no constipation. Patient denies any fever or chills. in room discussed appointment with the neurosurgeon and stated she already sent all the paperwork's and fax it to . DS: Diagnosis - Discharge Diagnosis (1) Paresthesia of arm Status: Acute (2) Paresthesias/numbness Status: Acute (3) Dizziness Status: Acute (4) Bradycardia Status: Acute (5) Hot flashes Status: Acute DS: Medications - Discharge Medications Prescriptions: meclizine 25 mg PO Q8H PRN 30 Days #90 tab PRN Reason: Dizziness DS: Summary Hospital Course: This is a 78 years old male with a known history of pituitary adenoma diagnosed 10 years ago returns to the ED for evaluation of hot flashes, bilateral hand numbness and tingling for 24 hours duration, associated with hot flashes, dizziness without any headache or visual change. Brain MRI was positive for pituitary mass which measures 0.6 x 1.7 x 1.3 cm consistent with probable pituitary microadenoma. He was seen by the neurosurgeon Dr. Ray, referred to neurosurgery Alon Ramirez ([phone]) pituitary clinic (with [facility]) for consideration of surgical resection as outpatient next few weeks. - Time Spent with Patient Total time spent providing and/or coordinating discharge services: Greater than 30 minutes - Quality: VTE Deep Vein Thrombosis/Pulmonary Embolism Present on Admission: No Exam Vital signs: Vital Signs 06/05/18 12:00 06/05/18 16:00 06/05/18 19:53 Temperature 97.7 F 97.7 F 97.9 F Pulse Rate 69 75 74 Respiratory Rate 20 20 20 Blood Pressure 144/69 H 146/70 H 120/58 L Pulse Oximetry 95 96 96 06/05/18 20:00 06/06/18 00:00 06/06/18 04:00 Temperature 97.8 F 97.8 F Pulse Rate 74 71 70 Respiratory Rate 20 20 20 Blood Pressure 125/69 137/82 Pulse Oximetry 95 96 06/06/18 08:00 Temperature 97.8 F Pulse Rate 66 Respiratory Rate 18 Blood Pressure 113/57 L Pulse Oximetry 97 Intake & Output 06/05/18 06/06/18 06/06/18 18:59 06:59 18:59 Intake Total 600 / 600 600 / 600 Output Total 750 / 750 1700 / 1700 Balance -150 / -150 -1100 / -1100 Weight 99.3 kg Intake: Oral 600 / 600 600 / 600 Output: Urine 750 / 750 1700 / 1700 Other: # Bowel Movements 1 Narrative: GENERAL: Well-developed, well-nourished, alert and oriented x3, in no apparent distress SKIN: Warm and dry. HEAD: Atraumatic. Normocephalic. EYES: Pupils equal and round. No scleral icterus. No injection or drainage. wearing eye glasses ENT: No nasal bleeding or discharge. Mucous membranes pink and moist. NECK: Trachea midline. No JVD. CARDIOVASCULAR: Regular rate and rhythm. RESPIRATORY: No accessory muscle use. Clear to auscultation. Breath sounds equal bilaterally. GASTROINTESTINAL: Abdomen obese, soft, non-tender, nondistended. Hepatic and splenic margins not palpable. MUSCULOSKELETAL: Extremities without clubbing, cyanosis, or edema. No obvious deformities. NEUROLOGICAL: Awake and alert. No obvious cranial nerve deficits. Motor grossly within normal limits. Moving all 4 extremities. Normal speech. PSYCHIATRIC: Appropriate mood and affect; insight and judgment normal. Results Procedures completed during hospitalization: Head CT MRI Head Labs on day of discharge: Labs from last 24 hours 06/05/18 06/05/18 06:03 06:03 Prolactin 18.8 H Human Growth Hormone 0.03 - Impressions ITS Impressions Chest X-Ray 06/04/18 10:05 CONCLUSION: Negative for acute process Head CT 06/04/18 10:05 CONCLUSION: 1. 9 mm soft tissue nodule associated with the pituitary gland. This does not generate mass effect. This can be further assessed with MRI of the pituitary gland clinically warranted. 2. No acute intracranial abnormality. . Head MRI 06/04/18 11:43 CONCLUSION: 1. 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 This results in mass effect upon the optic chiasm and displaces the infundibulum to the left. 2. No acute infarct, acute hemorrhage, midline shift or extra-axial fluid collections. Discharge Plan - Discharge Disposition Patient Disposition: Discharge Home - Discharge Condition Condition: Stable - Discharge Order Discharge Orders: Discharge Order (Routine); Ordered 06/06/18 Ordered By: Cheryle Rey - Discharge Details Anticipated Discharge Date: 06/04/18 - Physicians Team Attending Provider: Raphael Ngo Other Providers: Aric Ray MD
[2018-06-06 12:25] VITALS: BP 116/56; PULSE 72; TEMP 98; O2SAT 95
[2018-06-06 23:51] LABS: IGF-1 GC/MS 94 ng/mL (34-245)
== END 2018-06-06 15:05 | disposition home or self-care (01) ==
LOC: NEDA 09:32 → NEPC 09:32 → N04 13:20
PROVIDERS: ADMIT Internal Medicine; ATTEND Internal Medicine